=== PATIENT | female | born 1960 | race Caucasian/White ===

== ENCOUNTER 2018-12-07 23:38 | Emergency (ER) | payer BC ==
--- NOTE | 2018-12-08 02:45 | ER Document Report ---
ED General - General Chief Complaint: Shortness Of Breath Stated Complaint: HEAVEY CHEST Time Seen by Provider: 12/08/18 01:45 Notes: Patient is a 58-year-old female that comes to the emergency department for chief complaint of 3 weeks of cough, congestion, and pain across her chest with cough. She states that she has felt worse over the past several days, she has had chills, states she feels more sick. She completed a course of amoxicillin that she took for about a week after symptom onset. She reports pain across her chest, mostly with cough. She denies vomiting, abdominal pain, passing out. She smokes, she denies history of COPD or asthma, she denies any daily medications or medical history diagnosed. Past medical history of tubal ligation. TRAVEL OUTSIDE OF THE [place] IN LAST 30 DAYS: No - Related Data Allergies/Adverse Reactions: No Known Allergies Allergy (Unverified 12/08/18 06:02) Past Medical History - General Information source: Patient - Social History Smoking Status: Current Every Day Smoker Chew tobacco use (# tins/day): No Smoking Education Provided: Yes - <3 min Frequency of alcohol use: None Drug Abuse: None Lives with: Spouse/Significant other Family History: Reviewed & Not Pertinent Patient has suicidal ideation: No Patient has homicidal ideation: No Renal/ Medical History: Denies: Hx Peritoneal Dialysis - Immunizations Immunizations up to date: Yes Hx Diphtheria, Pertussis, Tetanus Vaccination: Yes Review of Systems - Review of Systems Constitutional: See HPI EENT: No symptoms reported Cardiovascular: No symptoms reported Respiratory: See HPI Gastrointestinal: No symptoms reported Genitourinary: No symptoms reported Female Genitourinary: No symptoms reported Musculoskeletal: No symptoms reported Skin: No symptoms reported Hematologic/Lymphatic: No symptoms reported Neurological/Psychological: No symptoms reported Physical Exam - Vital signs Vitals: Temp Pulse Resp BP Pulse Ox 98.2 F 86 18 119/76 98 12/07/18 23:45 12/07/18 23:45 12/07/18 23:45 12/07/18 23:45 12/07/18 23:45 - Notes Notes: GENERAL: Alert, interacts well. No acute distress. HEAD: Normocephalic, atraumatic. EYES: Pupils equal, round, and reactive to light. Extraocular movements intact. ENT: Oral mucosa moist, tongue midline. Oropharynx unremarkable. Airway patent. Nares patent, no nasal septal hematoma, TM's intact. NECK: Full range of motion. Supple. Trachea midline. LUNGS: Occasional heavy coughing episodes. Some rhonchi and rales in the right mid to lower lobe. Faint occasional expiratory wheeze. Otherwise unremarkable. No tachypnea or distress. HEART: Regular rate and rhythm. No murmur ABDOMEN: Soft, non-tender. Non-distended. Bowel sounds present in all 4 quadrants. GENITOURINARY: Deferred EXTREMITIES: Moves all 4 extremities spontaneously. No edema, normal radial and dorsalis pedis pulses bilaterally. No cyanosis. BACK: no cervical, thoracic, lumbar midline tenderness. No saddle anesthesia, normal distal neurovascular exam. NEUROLOGICAL: Alert and oriented x3. Normal speech. [cranial nerves II through XII grossly intact]. PSYCH: Normal affect, normal mood. SKIN: Warm, dry, normal turgor. No rashes or lesions noted. Course - Re-evaluation Re-evalutation: Patient coughed so hard she vomited. She was given [place] after this. She did have good results with this. She does have rhonchi and a few rales in the right mid to lower lobe heard on auscultation. She has had intermittent wheezing but this clears with cough. She is a smoker. Her evaluation is consistent with bronchitis and possible secondary pneumonia. CBC unremarkable, chemistry unremarkable, troponin is negative. Chest x-ray showing possible right-sided pneumonia. This is consistent with patient's physical examination. I do suspect bronchitis with developing. Discussed with patient. Patient has no difficulty with ambulation, no hypoxia, no respiratory distress. Given Rocephin, doxycycline, starting on prednisone for wheezing/COPD component, provided with work-release. Discussed medications, close follow-up, smoking cessation, and strict return precautions. Patient states understanding and agreement with plan. - Vital Signs Vital signs: Temp Pulse Resp BP Pulse Ox 98.4 F 86 19 107/62 93 12/08/18 06:44 12/07/18 23:45 12/08/18 06:35 12/08/18 06:35 12/08/18 06:35 - Laboratory Result Diagrams: 12/08/18 03:31 12/08/18 03:31 Laboratory results interpreted by me: 01/24/19 01/24/19 03:31 03:31 RDW 14.3 H Carbon Dioxide 31 H - EKG Interpretation by Me Additional EKG results interpreted by me: EKG showing sinus rhythm with no T wave inversions or ST segment changes in negative leads. PACs present. Discharge - Discharge Clinical Impression: Productive cough, Tobacco abuse Pneumonia Qualifiers: Pneumonia type: due to unspecified organism Laterality: right Lung location: middle lobe of lung Qualified Code(s): J18.1 - Lobar pneumonia, unspecified organism Condition: Stable Disposition: HOME, SELF-CARE Additional Instructions: Your workup and evaluation are consistent with probable pneumonia. This is seen on chest x-ray as well. Take the prednisone as prescribed, take the antibiotics as prescribed, follow-up closely with primary care. Rest. Take the medication as needed for cough. Stop smoking. Follow-up with primary care. Return if you worsen including difficulty breathing, passing out, spiking fevers, or any other concerning or worsening symptoms. Prescriptions: Hydrocodone Bit/Homatropine [Hycodan Syrup 5-1.5 mg/5 ml Ud Cup] 5 ml PO Q4HP PRN #120 ml PRN Reason: Doxycycline Hyclate 100 mg PO BID #14 capsule Prednisone [Deltasone 20 mg Tablet] 3 tab PO DAILY 5 Days tablet Forms: Return to Work
[2018-12-08] MEDS ORDERED: ONDANSETRON HCL INJ/PF 4 MG/2 ML SDV IV ONE (03:26)
[2018-12-08] MEDS ORDERED: ONDANSETRON HCL INJ/PF 4 MG/2 ML SDV ONE (03:27)
[2018-12-08 03:47] LABS: ABSOLUTE EOSINOPHILS # (AUTO) 0.1 10^3/uL (0.0-0.6); ABSOLUTE MONOCYTES (AUTO) 0.8 10^3/uL (0.1-1.4); ABSOLUTE NEUT (AUTO) 5.8 10^3/uL (1.7-8.2); BASOPHILS % (AUTO) 0.5 % (0-2); HEMATOCRIT 37.6 % (36.0-47.0); HEMOGLOBIN 12.7 g/dL (12.0-15.5); LYMPHOCYTES % (AUTO) 30.5 % (13-45); MEAN CORPUSCULAR HEMOGLOBIN 29.7 pg (27.0-33.4); MEAN CORPUSCULAR HGB CONC 33.8 g/dL (32.0-36.0); MEAN CORPUSCULAR VOLUME 88 fl (80-97); MONOCYTES % (AUTO) 8.3 % (3-13); PLATELET COUNT 247 10^3/uL (150-450); RED BLOOD COUNT 4.27 10^6/uL (3.72-5.28); RED CELL DISTRIBUTION WIDTH 14.3 % (11.5-14.0); SEGMENTED NEUTROPHILS % (AUTO) 59.7 % (42-78); TOTAL CELLS COUNTED % (AUTO) 100 %; WHITE BLOOD COUNT 9.8 10^3/uL (4.0-10.5)
[2018-12-08 03:54] LABS: BLOOD UREA NITROGEN 16 mg/dL (7-20); CALCIUM 9.2 mg/dL (8.4-10.2); CARBON DIOXIDE 31 mmol/L (22-30); CHLORIDE 106 mmol/L (98-107); GLUCOSE 100 mg/dL (75-110); POTASSIUM 4.4 mmol/L (3.6-5.0)
[2018-12-08 03:59] LABS: ANION GAP 5 (5-19)
--- NOTE | 2018-12-08 04:03 | RADIOLOGY REPORT (SQ) ---
EXAM DESCRIPTION: XR CHEST 2 VIEWS COMPLETED DATE/TME: 12/08/2018 02:02 CLINICAL HISTORY: 58 years, Female, worsening productive cough and shortness of breath COMPARISON: None. NUMBER OF VIEWS: Two TECHNIQUE: PA and lateral views of the chest LIMITATIONS: None. FINDINGS/impression: Abnormal contour of the right heart border. It is not clear if this represents a middle lobe pneumonia or a prominent pericardial fat pad or cyst. The remaining lung zones are clear. There are no pleural abnormalities. copyright 2010 [employer]- All Rights Reserved
[2018-12-08] MEDS ORDERED: HYDROCODONE/ACETAMINOPHEN 5-325 MG TABLET PO ONE (04:19)
[2018-12-08] MEDS ORDERED: METHYLPREDNISOLONE INJ 125 MG/2 ML SDV IV ONE (04:19)
[2018-12-08] MEDS ORDERED: CEFTRIAXONE 1 GM/D5W RTU 1 GM/50 ML RTUPB IV ONE (04:19)
[2018-12-08] MEDS ORDERED: DOXYCYCLINE HYCLATE 100 MG TABLET PO ONE (04:20)
[2018-12-08 06:44] VITALS: BP 107/62
--- NOTE | 2018-12-08 08:05 | EKG REPORT ---
SEVERITY:- OTHERWISE NORMAL ECG - SINUS RHYTHM ATRIAL PREMATURE COMPLEX : Confirmed by: Kathy Gonsalez MD 08-Dec-2018 08:04:45
== END 2018-12-08 06:48 | disposition home or self-care (01) ==
LOC: ER 23:38
DX: J18.1 Lobar pneumonia, unspecified organism (principal); R06.02 Shortness of breath; R07.89 Other chest pain; F17.200 Nicotine dependence, unspecified, uncomplicated
CPT/HCPCS: 93005; 99285; 96375; 96365; 36415; 85025; 80048; 84484; 71046; 93010; J2930; J0696